=== PATIENT | male | born 2000 | race Caucasian/White ===

== ENCOUNTER 2023-11-24 21:50 | Emergency (ER) | payer BC, SELFPAY ==
[2023-11-24 21:53] VITALS: BP 128/79; PULSE 77; RESP 16; TEMP 36.9; O2SAT 99
[2023-11-24 22:05] VITALS: BP 128/79; PULSE 77; RESP 16; TEMP 36.9; O2SAT 99
--- NOTE | 2023-11-24 22:14 | ED.GENADUL_ITS ---
Discharge Plan Disposition Patient Disposition: Home Condition: Good Discharge Details Chief Complaint: EyeProblem Clinical Impression: Abrasion of cornea, right ED Provider: Vishnu Cannon Home Meds and New Rx's Prescriptions: No Action No Known Home Meds Discharge Instructions Instructions: Corneal Abrasion (ED) Additional Instructions: At this time you have a corneal abrasion in your right eye. Please apply the erythromycin ointment every 12 hours. Please follow-up with the eye doctor in the next 48 to 72 hours if your symptoms do not improve. Please apply lubricating eyedrops to your eye over the next week if you have continued irritation in the morning. If you notice any worsening of your symptoms, or any new symptoms such as vomiting, diarrhea, fever, chills, shortness of breath, chest pain, numbness, weakness, or fainting , please return immediately to the emergency department for reevaluation. Please follow up with your primary care provider as soon as possible for reassessment and reevaluation. As always, it was a pleasure participating in your medical care today. Referrals: [facility] [Outside] [facility] General Date/Time Provider Initiated Documentation: 11/24/23 22:14 . HPI Narrative: This is a pleasant 23-year-old male with a past medical history of multiple corneal abrasions who presents today for right eye irritation. Patient states that about 2 to 3 hours ago a pine bow struck his right eye, he had immediate irritation and it. He was not able to see any evidence of foreign body. Unfortunately the symptoms persisted and he came to the ER for further assessment. Aside from mild blurriness in the right eye he denies any other complaints. He does not wear contact lenses. No recent welding. No metal grinding. No other complaints at this time. Related Data Home Medications Medication Instructions Recorded Confirmed Unknown [No Known Home Meds] 11/24/23 11/24/23 Allergies Allergy/AdvReac Type Severity Reaction Status Date / Time pencillin Allergy Unknown Unknown Uncoded 11/24/23 21:58 General Stated Complaint: EyeProblem DARCY: 4 Review of Systems All systems reviewed & are unremarkable except as noted in HPI and below Exam Narrative Exam Narrative: 1.Const: Well-nourished, Well-developed, appearing stated age 2.Eyes: Right eye: Eye: EOMI, PERRL, Peripheral vision intact. No nystagmus. Fundoscopic exam shows normal optic discs and normal vasculature. No clinical signs of septal/orbital cellulitis, no redness around the eye, no proptosis. No hyphema, no signs of trauma around the eye, no periorbital emphysema. No sluggishness of the pupil. No ophthalmoplegia. No afferent pupillary defect. Fluorescein exam is positive for corneal abrasion in the 10 o'clock position just superior and lateral to the pupil, negative Geovanna sign. Visual acuity as documented in chart. 3.ENT: Atraumatic external nose and ears. Moist MM. Neck: Symmetric, trachea midline, No thyromegaly. 4.CVS: +S1/S2, No murmurs or gallops. Peripheral pulses 2+ and equal in all extremities. Brisk capillary refill in all extremities. 5.RESP: Unlabored respiratory effort. Clear to auscultation bilaterally. No wheezes rales or rhonchi 6.GI: Soft, Nontender/Nondistended, No hepatosplenomegaly. No guarding or rebound. 7.MSK: Normocephalic/Atraumatic, Extremities w/o deformity or ttp No cyanosis or clubbing, Normal movement of all extremities 8.Skin: Warm, Dry. No rashes or lesions. 9.Neuro: soldering technician II-XII grossly intact. Sensation grossly intact, no focal neurologic deficits. 10.Psych: (AAO) x3. Appropriate mood and affect Course Vital Signs Vital signs: Vital Signs Temperature 36.9 C 11/24/23 21:53 Pulse 77 11/24/23 21:53 Respiratory Rate 16 11/24/23 21:53 Blood Pressure 128/79 11/24/23 21:53 Pulse Oximetry 99 11/24/23 21:53 Temperature 36.9 C 11/24/23 22:05 Temperature Source Skin 11/24/23 22:05 Pulse 77 11/24/23 22:05 Respiratory Rate 16 11/24/23 22:05 Respiratory Effort Normal, Non-Labored 11/24/23 21:58 Blood Pressure 128/79 11/24/23 22:05 Blood Pressure Position Sitting 11/24/23 22:05 Pulse Oximetry 99 11/24/23 22:05 Oxygen Delivery Method Room Air 11/24/23 22:05 Oxygen Flow Rate 0 11/24/23 21:53 Pain Level 1 11/24/23 22:05 Medical Decision Making This is a pleasant 23-year-old male with a past medical history of multiple corneal abrasions who presents today for right eye irritation. Patient states that about 2 to 3 hours ago a pine bow struck his right eye, he had immediate irritation and it. He was not able to see any evidence of foreign body. Unfortunately the symptoms persisted and he came to the ER for further assessment. Aside from mild blurriness in the right eye he denies any other complaints. He does not wear contact lenses. No recent welding. No metal grinding. No other complaints at this time. Exam demonstrates evidence of mild corneal abrasion in the right upper component of the eye, for the right eye. Eversion of the lid showed no foreign bodies. Corneal abrasion is minimal. Geovanna sign negative. Erythromycin ointment was placed. Patient's pain is well-controlled. Will recommend continued erythromycin, and lubricating eyedrops as needed. Will recommend follow-up with Dr. Dumont eye care. I have extensively reviewed the treatment plan and discharge instructions with the patient. I have addressed all patient concerns at this time. The patient was made aware of what symptoms to monitor for that would warrant a return to the emergency department. Discussed the plan with the patient, they demonstrate verbal understanding and agreement with our assessment and plan at this time. The documentation in this chart was dictated using [employer] dictation software. Please excuse any dictation errors. Quality:SDOH Health Related Social Needs: No Data to Display PFSH All Active Problems Abrasion of cornea, right (Acute) Social History Smoking/Tobacco Use Status: Former Tobacco Use Smoking risk assessment performed?: Yes Alcohol Intake: current Alcohol Intake frequency: a few times a month Alcohol type: beer Drug use: Never Substance use type: does not use Housing: apartment Do you feel safe at home: Yes Do you feel safe in your relationship?: Yes
[2023-11-24] MEDS: Erythromycin Ophth Oint 3.5 GM TUBE (22:28)
[2023-11-24] MEDS: Fluorescein STRIPS 100/BOX 1 MG (22:29)
--- NOTE | 2023-11-24 22:33 | NUR.NOTE ---
Patient needs referral to [facility] in 48-72 hours for Corneal Abrasion.Nursing Note:
--- NOTE | 2023-11-24 23:58 | NUR.NOTE ---
Referral request faxed to [facility] in [facility].Nursing Note:
== END 2023-11-24 22:31 | disposition home or self-care (01) ==
PROVIDERS: Emergency Provider Student in an Organized Health Care Education/Training Program
DX: S05.01XA Injury of conjunctiva and corneal abrasion without foreign body, right eye, initial encounter (principal); Z87.891 Personal history of nicotine dependence; W22.8XXA Striking against or struck by other objects, initial encounter; Y93.89 Activity, other specified; Y92.89 Other specified places as the place of occurrence of the external cause
CPT/HCPCS: 99283